=== PATIENT | female | born 1995 | race Caucasian/White ===

== ENCOUNTER 2017-11-20 05:03 | Outpatient (CLI) | END 2017-11-20 12:55 | disposition home or self-care (01) ==

== ENCOUNTER → 2017-12-11 | Outpatient (CLI) | END | disposition home or self-care (01) ==

== ENCOUNTER 2017-12-12 09:10 | Inpatient (IN) | END 2017-12-15 15:53 | disposition home or self-care (01) | DRG 766 ==